=== PATIENT | female | born 1945 | race Caucasian/White ===

== ENCOUNTER → 2020-02-06 | Outpatient (CLI) | payer OTHER, MEDICARE ==
[~2020-02-06] MED LIST: ACETAMINOPHEN-1 EAC1 PO; AZOPT5 ML OP; CELLCEPT500 MG PO; COMBIVENT INH; COUMADIN 5 MG TA5 M1 PO; DIAZEPAM2 MG; DOXYCYCLINE 10100 MG PO; FLEXERIL PO; HYCET 7.5 MG-3473 ML PO; NORCO 5-325 TA1 EACH PO; NORCO 7.5-3251 EACH PO; PRED FORTE 1% EY5 M1 OP; PREDNISONE 20 M20 M1 PO; PREDNISONE 20 M20 MG PO; PROAIR HFA8.5 GM INH; TESSALON PERLE100 MG PO; VALIUM2 MG PO; ZOFRAN ODT4 MG PO; [UNRECOGNIZED DRUG - OTHER]
== END ==
LOC: RAD 10:59
DX: J43.8 Other emphysema (principal); J98.4 Other disorders of lung

== ENCOUNTER → 2020-02-23 | Outpatient (CLI) | payer OTHER, MEDICARE | LOC: CAT 12:36 | DX: J43.9 Emphysema, unspecified (principal); J98.4 Other disorders of lung; I25.10 Atherosclerotic heart disease of native coronary artery without angina pectoris; M25.78 Osteophyte, vertebrae; E04.9 Nontoxic goiter, unspecified; Z88.0 Allergy status to penicillin; Z88.5 Allergy status to narcotic agent ==

== ENCOUNTER → 2020-04-11 | Outpatient (CLI) | payer OTHER, MEDICARE | LOC: ULTRA 09:54 | PROVIDERS: ATTEND Internal Medicine | DX: E04.1 Nontoxic single thyroid nodule (principal) ==

== ENCOUNTER → 2020-04-18 | Outpatient (CLI) | payer OTHER, MEDICARE ==
--- NOTE | 2020-04-19 16:06 | PATH ---
[facility] [place] [address] PATHOLOGY RPT PROCEDURE Name: OLENA MCKEON Room #: REG [facility]#: [id number] Admission: 04/18/20 Date of : 41 Discharge: Report #: [id number] Path Case #: [id number] Note [facility] Accession Number: [id number] TESTS RESULT FLAG UNITS REF RANGE LAB Clinician Provided Cytology Information No. of containers..01 Other (Miscellaneous) Source: LEFT THROID MASS DIAGNOSIS: LEFT THROID MASS, FINE NEEDLE ASPIRATION INCONCLUSIVE. [place] CATEGORY III. ATYPIA OF UNDETERMINED SIGNIFICANCE. THIS INTERPRETATION INCLUDES EVALUATION OF A CELL BLOCK. Comment: Examination shows a cellular aspirate comprised of several groups of follicular cells. Few of the cells show irregular nuclei as well as nuclear atypia. The background shows abundant lymphocytes, dense colloid and watery colloid. Features may be suggestive of reactive follicular cells in a background of chronic lymphocytic thyroiditis. A neoplastic process cannot be excluded. Portion of the sample obtained in the Retain Vial is sent for [employer] studies. Please note sample may not be entirely veterans contact representative; correlate clinically and follow-up as indicated. Pathologist ICD10: 02 R89.6 Signed out by: Milly Hassan MD, Pathologist NPI- [id number] Performed by: Regis Dan, [employer] Supervisor ([facility]) Gross description: 01 20ML, CLEAR RED, 3FX 3AD /LCS 04/18/20201956 Local FLAG LEGEND: L-Low Normal,H-High Normal,LL-Alert Low,HH-Alert High <-Panic Low,>-Panic High,A-Abnormal,AA-Critical Abnormal Performed at: 01 [facility] [address] [place] [address] Hank Ramirez MD, 02 [facility] [address] Nga Hassan MD, Specimen Comment: A courtesy copy of this report has been sent to [phone], [place] [address] PATHOLOGY RPT PROCEDURE Name: OLENA MCKEON Room #: REG [facility]#: [id number] Admission: 04/18/20 Date of : 41 Discharge: Report #: [id number] Path Case #: [id number] Specimen Comment: [id number] Specimen Comment: Report sent to / DR MARKS Specimen Comment: A duplicate report has been generated due to demographic updates. Performed at: 01 [facility] [address], [place], [place] [id number] MD Hank Ramirez MD Phone: [phone]
== END | disposition home or self-care (01) ==
LOC: ULTRA 08:41
PROVIDERS: ATTEND Internal Medicine
DX: E04.1 Nontoxic single thyroid nodule (principal); R89.6 Abnormal cytological findings in specimens from other organs, systems and tissues; J44.9 Chronic obstructive pulmonary disease, unspecified; Z98.890 Other specified postprocedural states; Z79.899 Other long term (current) drug therapy; Z88.0 Allergy status to penicillin; Z88.2 Allergy status to sulfonamides; Z88.8 Allergy status to other drugs, medicaments and biological substances